=== PATIENT | female | born 1965 | race American Indian/Alaskan Native ===

== ENCOUNTER 2020-01-22 06:16 | Day surgery (SDC) | payer OTHER ==
[2020-01-20 14:27] LABS: Mean Corpuscular HGB Conc 37 % (30-34); Mean Corpuscular Volume 86 fl (79-97); Platelet Count 234 K/mm3 (140-440); Red Blood Count 3.77 M/mm3 (3.65-5.03); Red Cell Distribution Width 12.8 % (13.2-15.2)
[2020-01-20 14:30] LABS: Hematocrit 32.3 % (30.3-42.9)
[2020-01-20 14:39] LABS: BUN/Creatinine Ratio 19; Blood Urea Nitrogen 17 mg/dL (7-17); Calcium 9.1 mg/dL (8.4-10.2); Hemolysis Index 1
[~2020-01-22 06:16] MED LIST: BACTERIOSTATIC SODIUM CHLORIDE 0.9% 30 ML VIAL INFILTRATI ONE; LACTATED RINGERS 1,000 ML IV SCH; MIDAZOLAM 2 MG/2 ML INJ IV NR
[2020-01-22] MEDS ORDERED: ceFAZolin/Water 2 GM/20 ML 2 GM/20 ML SYRINGE IV ONE (06:43)
[2020-01-22] MEDS ORDERED: FAMOTIDINE 20 MG/2 ML INJ IV NR (07:14)
[2020-01-22] MEDS ORDERED: METOCLOPRAMIDE 10 MG/2 ML INJ IV NR (07:17)
[2020-01-22] MEDS ORDERED: BUPIVACAINE/PF (0.25%) 2.5 MG/ML 30 ML VIAL INFILTRATI ONE ×2 (07:18→08:23)
[2020-01-22] MEDS ORDERED: LIDOCAINE 1%/EPINEPHRINE 1:100,000 VIAL (20 ML) INFILTRATI ONE (07:18)
[2020-01-22] MEDS ORDERED: METOCLOPRAMIDE 10 MG/2 ML INJ ONE (07:18)
--- NOTE | 2020-01-22 07:18 | Anesthesia Day of Surgery ---
Anesthesia Day of Surgery - Day of Surgery Patient Examined: Yes Patient H&P Reviewed: Yes Patient is NPO: Yes
--- NOTE | 2020-01-22 07:18 | Anesthesia Consultation ---
Anesthesia Consult and Med Hx Date of service: 01/22/20 - Airway Anesthetic Teeth Evaluation: Poor ROM Head & Neck: Adequate Mental/Hyoid Distance: Adequate Mallampati Class: Class II Intubation Access Assessment: Good - Pulmonary Exam CTA: Yes - Cardiac Exam Cardiac Exam: RRR - Pre-Operative Health Status ASA Pre-Surgery Classification: ASA3 Proposed Anesthetic Plan: General - Pulmonary Hx Smoking: Yes (OCC. SMOKES MARIJUANA) Hx Asthma: No COPD: No Hx Pneumonia: No Hx Sleep Apnea: No (GUDELIA PRE SCREEN HIGH RISK) - Cardiovascular System Hx Hypertension: Yes Hx Heart Attack/AMI: No Hx Pacemaker: No Hx Internal Defibrillator: No - Central Nervous System Hx Seizures: No CVA: No Hx Psychiatric Problems: No - Gastrointestinal Hx Gastroesophageal Reflux Disease: Yes (uncontrolled) - Endocrine Hx End Stage Renal Disease: No Hx Cirrhosis: No Hx Liver Disease: No - Hematic Hx Anemia: Yes Hx Sickle Cell Disease: No - Other Systems Hx Alcohol Use: Yes (WINE 5XWEEK) Hx Substance Use: Yes (OCC MARIJUANA) Hx Cancer: No
[2020-01-22] MEDS ORDERED: fentaNYL 100 MCG/2 ML INJ ONE (07:25)
[2020-01-22] MEDS ORDERED: propofoL 200 MG/20 ML VIAL IV ONE (07:25)
[2020-01-22] MEDS ORDERED: ROCURONIUM 50 MG/5 ML INJ IV ONE (07:25)
[2020-01-22] MEDS ORDERED: fentaNYL 100 MCG/2 ML INJ IV PRN (08:00)
[2020-01-22] MEDS ORDERED: LIDOCAINE (1%) 10 MG/1 ML VIAL 20 ML MDV ONE (08:03)
[2020-01-22] MEDS ORDERED: SODIUM CHLORIDE 0.9% IRR 1,500 ML BOTTLE IR ONE (08:24)
[2020-01-22] MEDS ORDERED: LIDOCAINE (1%) 10 MG/1 ML VIAL 20 ML MDV INFILTRATI ONE (08:24)
[2020-01-22] MEDS ORDERED: PHENYLEPHRINE/NS 1,000 MCG/10 ML SYRINGE (OR USE) IV ONE (09:00)
[2020-01-22] MEDS ORDERED: HYDROmorphone 1 MG/1 ML INJ ONE (09:02)
[2020-01-22] MEDS ORDERED: dexAMETHasone 20 MG/5 ML VIAL ONE (09:06)
[2020-01-22] MEDS ORDERED: KETOROLAC 30 MG/1 ML INJ ONE (09:06)
[2020-01-22] MEDS ORDERED: ONDANSETRON 4 MG/2 ML INJ ONE (09:06)
[2020-01-22] MEDS ORDERED: BACITRACIN ZINC OINT 28.4 GM TP ONE (09:30)
--- NOTE | 2020-01-22 09:41 | Short Stay Summary ---
Short Stay Documentation Date of service: 01/22/20 - History Principal diagnosis: soft tissue mass right wrist, left arm and cyst of scalp - Allergies and Medications Current Medications: Allergies No Known Allergies Allergy (Verified 01/18/20 17:12) Home Medications Medication Instructions Recorded Confirmed Last Taken Type Clonidine HCl [Kapvay] 0.1 mg PO HS 01/15/20 01/15/20 01/21/20 History Losartan Potassium 50 mg PO DAILY 01/15/20 01/22/20 01/22/20 05:50 History Triamter/Hctz 37.5-25 mg 37.5 mg PO 2XW 01/15/20 01/22/20 01/21/20 History Vitamin D (Nf) 1 cap PO DAILY 01/15/20 01/15/20 01/21/20 History Active Medications Famotidine (Pepcid) 20 mg IV PREOP NR Stop: 01/22/20 13:00 Last Admin: 01/22/20 07:16 Dose: 20 mg Documented by: Fentanyl (Sublimaze) 50 mcg IV Q5MIN PRN PRN Reason: Pain , Severe (7-10) Stop: 01/22/20 17:00 Lactated Ringer's (Lactated Ringers) 1,000 mls @ 100 mls/hr IV DIRECT KULWANT Stop: 01/22/20 23:59 Last Admin: 01/22/20 07:00 Dose: 100 mls/hr Documented by: Metoclopramide HCl (Reglan) 10 mg IV ONCE NR Stop: 01/22/20 13:00 Last Admin: 01/22/20 07:25 Dose: 10 mg Documented by: Midazolam HCl (Versed) 2 mg IV PREOP NR Stop: 01/22/20 23:59 Last Admin: 01/22/20 07:18 Dose: 2 mg Documented by: - Brief post op/procedure progress note Date of procedure: 01/22/20 Pre-op diagnosis: soft tissue mass right wrist, left arm and cyst of scalp Post-op diagnosis: same Procedure: Excision of soft tissue mass right wrist and left arm Excision of scalp cyst Anesthesia: GETA, local Findings: 1. 9 cm lipoma of left upper arm, intramuscular 2. 2 cm lipoma of right wrist 3. <1cm cyst of scalp Surgeon: DOTTIE AVALOS Estimated blood loss: minimal Pathology: list (1. Soft tissue mass left arm, 2. soft tissue mass right wrist, 3. scalp cyst) Specimen disposition: to lab Condition: stable - Hospital course Hospital course: Pt observed in PACU and discharged to home in stable condition when criteria met - Disposition Condition at discharge: Good Disposition: DC-01 TO HOME OR SELFCARE Short Stay Discharge Plan Activity: no restrictions Diet: regular Wound: per your surgeon's advice Additional Instructions: SEE PRINTED DC INSTRUCTIONS Follow up with: CYNTHIA DOVER MD [Primary Care Provider] - 7 Days DOTTIE AVALOS DO [Staff Physician] - 14 Days Prescriptions: HYDROcodone/APAP 5-325 [Warner 5/325] 1 each PO Q4HR PRN #10 tablet PRN Reason: Pain , Severe (7-10)
[2020-01-22 10:45] VITALS: BP 119/69
--- NOTE | 2020-01-22 11:08 | Post Anesthesia Evaluation ---
- Post Anesthesia Evaluation Patient Participated: Yes Airway Patent: Yes Stable Respiratory Function: Yes Nausea/Vomiting: No Temp > 96.8F: Yes Pain Manageable: Yes Adequeate Hydration: Yes Anesthesia Complications: No
--- NOTE | 2020-01-25 12:30 | Operative Report ---
PREOPERATIVE DIAGNOSES: 1. Soft tissue mass, right wrist. 2. Soft tissue mass, left arm. 3. Cyst of scalp. POSTOPERATIVE DIAGNOSES: 1. Soft tissue mass, right wrist. 2. Soft tissue mass, left arm. 3. Cyst of scalp. PROCEDURE: Excision of soft tissue mass, right wrist and left arm and excision of scalp cyst. ANESTHESIA: General endotracheal anesthesia, local. FINDINGS: 1. A 9-cm lipoma of left upper arm, intramuscular. 2. A 2-cm lipoma of right wrist. 3. Less than 1 cm cyst of scalp. SURGEON: Micheline Roman DO ESTIMATED BLOOD LOSS: Minimal. PATHOLOGY: 1. Soft tissue mass, left arm. 2. Soft tissue mass, right wrist. 3. Scalp cyst. SPECIMEN DISPOSITION: To lab. CONDITION AT DISPOSITION: The patient is stable to PACU. HISTORY OF PRESENT ILLNESS AND INDICATION: The patient is a 54-year-old female who presented to the Surgery [facility] with complaints of multiple soft tissue masses. The main concern was the soft tissue mass of the left upper arm, which was starting to cause discomfort to the patient as it had gotten larger in time. She also had a soft tissue mass of her right wrist, which was bothersome at times and a cyst on her scalp, which she felt, did get slightly larger. The patient requested that all masses be removed. I discussed all risks, benefits and alternatives to surgery with the patient. Questions were answered. Consent was obtained. Preoperative COVID testing was negative. PROCEDURE IN DETAIL: The patient was identified in the preoperative area, taken back to the operating room and placed on the operating table in supine position. After anesthesia was induced, the left upper arm was prepped and draped in the usual sterile fashion and timeout performed. Local anesthetic was infiltrated into the skin and subcutaneous tissue at the intended incision site. A 6 cm longitudinal incision was made using a 15 blade in the long axis of the arm and dissection was carried down through skin and subcutaneous tissue using Bovie electrocautery until the mass was identified. Once the mass was identified, it was circumferentially dissected free from the surrounding tissue. There was a thin capsule surrounding the mass along with and the mass was deep to muscle. The muscle did have to be divided using electrocautery in order to access the mass. No vital structures were encountered during the dissection. The mass easily from the underlying muscle once the capsule was entered. The mass was bluntly dissected from the underlying tissue along with very careful use of electrocautery. Once the mass was circumferentially dissected, it was removed from the wound and measured at 9 cm. It was fatty in nature and consistent with lipoma. The wound was then irrigated and hemostasis very carefully ensured. Once hemostasis was ensured, Barbara powder was instilled into the wound to further ensure hemostasis. The wound was then closed in a layered fashion. The deep layer was closed with interrupted 3-0 Vicryl sutures. The deep dermal layer was then closed with interrupted 3-0 Vicryl sutures and the skin approximated with 4-0 Monocryl subcuticular running stitch and skin glue. After the glue was dry, 4 x 4 gauze was placed over the incision and the arm wrapped with a 4-inch Geo wrap for mild compression. At this time, we turned our attention to the right wrist. The right wrist was prepped and draped in the usual sterile fashion. Local anesthetic was infiltrated into skin and subcutaneous tissue at the intended incision site. A 1 cm incision was made over the area of the soft tissue mass using a 15 blade and dissection carried down through skin and subcutaneous tissue using Bovie electrocautery. A small superficial vein that was encountered was ligated with cautery. The mass was circumferentially dissected free from the underlying tissue. This was done using combination of blunt dissection with a hemostat and a very careful use of electrocautery. Once the mass was circumferentially dissected, it was removed from the wound and measured at 2 cm. It was fatty and consistent with a lipoma. The wound was then irrigated and hemostasis was carefully ensured. The incision was then closed using 4-0 Monocryl subcuticular interrupted stitches and skin glue. I then turned my attention to the scalp cyst. The hairs in the area of the cyst were clipped and the scalp prepped and draped in the usual sterile fashion. Local anesthetic was infiltrated into the skin at the intended incision site. A 2 cm incision was made over the area of the cyst. The cyst was then circumferentially dissected free from the surrounding tissue. There was some clear gelatinous fluid expressed from the cyst. The cyst was also densely adhered to the skin. Once the cyst was circumferentially dissected, it was excised circumferentially, dissected using a combination of blunt dissection with a hemostat, sharp dissection with iris scissors and electrocautery. It was measured at 1 cm. It was passed off the table as a specimen. The wound was then checked for hemostasis. Hemostasis was achieved using electrocautery. The wound was then irrigated and hemostasis ensured. Wound was then closed with interrupted 2-0 Prolene suture, simple sutures x 4 and a thin layer of bacitracin ointment was applied to the area. At the end of the case, all sponge, instrument, sharp counts were correct x 2. The patient was awoken from anesthesia, extubated and taken to PACU in stable condition. JOB# [id number] JUHI/NICK DOBBS
== END 2020-01-22 11:00 | disposition home or self-care (01) ==
LOC: OR 06:16
PROVIDERS: ATTEND Surgery
DX: R22.0 Localized swelling, mass and lump, head (principal); Z20.828 Contact with and (suspected) exposure to other viral communicable diseases; R22.33 Localized swelling, mass and lump, upper limb, bilateral; D17.22 Benign lipomatous neoplasm of skin and subcutaneous tissue of left arm; D17.21 Benign lipomatous neoplasm of skin and subcutaneous tissue of right arm; Z79.899 Other long term (current) drug therapy; F17.210 Nicotine dependence, cigarettes, uncomplicated; I10 Essential (primary) hypertension; K21.9 Gastro-esophageal reflux disease without esophagitis; Z98.891 History of uterine scar from previous surgery; Z72.89 Other problems related to lifestyle; Z98.890 Other specified postprocedural states
CPT/HCPCS: 11421; 24071; 25075; 36415; 80048; 85027; 88304; J0690; J1100; J1170; J1885; J2250; J2370; J2405; J2704; J2765; J3010; J7120; U0003; 88307